=== PATIENT | male | born 1945 | race Caucasian/White ===

== ENCOUNTER 2020-04-19 05:30 | Day surgery (SDC) | payer OTHER, SELFPAY ==
[~2020-04-19] VITALS: Ht 182.9 cm; Wt 93.0 kg
[2020-04-19] MEDS ORDERED: METF1000 PO (06:43)
[2020-04-19] MEDS ORDERED: TAMS-11 PO (06:43)
[2020-04-19] MEDS ORDERED: DUTA0.5C PO (06:43)
[2020-04-19] MEDS ORDERED: PRO40 PO (06:43)
[2020-04-19] MEDS ORDERED: ASPI-1153 PO (06:43)
[2020-04-19] MEDS ORDERED: GABA-531 PO (06:43)
[2020-04-19] MEDS ORDERED: LIP10 PO (06:43)
[2020-04-19] MEDS ORDERED: SITA100T11 PO (06:43)
[2020-04-19] MEDS ORDERED: METH10TA80 PO (06:43)
[2020-04-19] MEDS ORDERED: LISI-209 PO (06:43)
[2020-04-19] MEDS ORDERED: ceFAZolin SODIUM 1 GM in D5W 100 ML IV ONE (07:15)
[2020-04-19] MEDS ORDERED: CEFAZOLIN 1 GM IVPB PREMIX 50 ML IV ONE (07:15)
[2020-04-19] MEDS ORDERED: THROMBIN (BOVINE) 5000 UNITS/ VIAL TP ONE (07:38)
[2020-04-19] MEDS ORDERED: ONDANSETRON HCL 4 MG/2 ML VIAL IVP PRN ×2 (08:45→12:45)
[2020-04-19] MEDS ORDERED: PROPOFOL 200MG/ 20ML VIAL (DIPRIVAN) IV ONE (13:00)
[2020-04-19] MEDS ORDERED: SEVOFLURANE 15 MIN GAS INH ONE (13:00)
[2020-04-19] MEDS ORDERED: ONDANSETRON HCL 4 MG/2 ML VIAL ONE (13:00)
[2020-04-19] MEDS ORDERED: LIDOCAINE/EPI 1% 1:100000 20 ML VIAL INJ ONE (13:00)
[2020-04-19] MEDS ORDERED: CEFAZOLIN 2 GM IVPB PREMIX 50 ML IV ONE (13:00)
[2020-04-19] MEDS ORDERED: LIDOCAINE 1% 10 MG/ML, 20 ML MDV ONE (13:00)
[2020-04-19] MEDS ORDERED: fentaNYL CITRATE/PF 100 MCG/2 ML AMP ONE (13:00)
[2020-04-19] MEDS ORDERED: DEXAMETHASONE SOD PHOSPHATE 4 MG/ML VIAL ONE (13:00)
[2020-04-19] MEDS ORDERED: ROCURONIUM BROMIDE 10 MG/ML (ZEMURON) ONE (13:00)
[2020-04-19] MEDS ORDERED: NS IRRIG SOLN 1000 ML IR ONE (13:00)
[2020-04-19] MEDS ORDERED: SUCCINYLCHOLINE CHLORIDE 20 MG/ML(QUELICIN) ONE (13:00)
[2020-04-19] MEDS ORDERED: LR 1,000 ML IV.SOLN IV ONE (13:00)
[2020-04-19] MEDS: HYDROmorphone 1 MG INJ. 1 MG/ML AMPUL IVP PRN ×2 (13:12→13:33)
[2020-04-19] MEDS ORDERED: HYDROmorphone 1 MG INJ. 1 MG/ML AMPUL ONE (13:28)
[2020-04-19] MEDS ORDERED: NORMAL SALINE 5 ML DISP.SYRIN IVF SCH (14:00)
--- NOTE | 2020-04-19 14:40 | NUR ---
Admit Note from PACU received report from Alem ZEPEDA. Patient is a/ox4, states mild but tolerable pain at this time. Dressing around the head (cling wrap) with gauze to the surgical site on the right neck, patient is s/p right parotidectomy, dressing is clean, dry and intact, x1 MARQUITA drain from the right side of the neck as well, serous drainage noted, 20ml was emptied by PACU nurse, IV line is patent and infusing well, no s/s of infiltration, patient was educated digital production operator light system and plan of care, he verbalized understanding, bed in lowest position, three side rails up, bed alarm on, fall and aspiration precautions in place, SCD's in place, monitoring on telemetry and post op vital signs.
[2020-04-19 14:45] VITALS: BP_SYST 131
--- NOTE | 2020-04-19 15:30 | NUR ---
INITIAL NOTES: RECEIVED REPORT FROM MARIANNA.S/P RIGHT PAROTIDECTOMY. RIGHT NECK DRESSING CLEAN AND DRY,WITH MARQUITA DRAINING TO REDDISH COLOR.PATIENT SEEN IN THE ROOM.AWAKE,ALERT AND ORIENTED X4.LEFT HAND IV FLUIDS ON GOING AND AFTER IVF SALINE LOCK.POST OP VITALS SIGNS CHECKED AND RECORDED.CALL LIGHT WITH IN REACH. BED LOCKED AT LOWEST POSITION. NO DISTRESS THIS TIME DENIES ANY PAIN.
[2020-04-19] MEDS ORDERED: DEXAMETHASONE SOD PHOSPHATE 4 MG/ML VIAL IVP SCH (16:00)
--- NOTE | 2020-04-19 16:20 | NUR ---
Rn Rounds: Patient watching tv. Patient denies any pain.
[2020-04-19 17:12] VITALS: BP_SYST 126
[2020-04-19] MEDS: NORMAL SALINE 5 ML DISP.SYRIN IVF SCH ×2 (17:24→22:04)
[2020-04-19] MEDS: metFORMIN HCL 500 MG TABLET PO SCH (17:25)
--- NOTE | 2020-04-19 17:30 | NUR ---
DINNER: CALLED DIETARY 3X AND LEFT MESSAGE REGARDING PATIENT'S DIET. DIRECTOR MANUFACTURING ENGINEERING ANIYA SPOKE WITH PAGE FROM DIETARY THAT SHE WILL SEND THE DINNER TRAY.
--- NOTE | 2020-04-19 19:00 | NUR ---
MD CARRILLO: SPOKE WITH DR ALLISON AND INFORMED HIM MARQUITA BULB WAS BROKEN,AND HE ORDERED TO TAKE PICTURES ON MARQUITA BULB AND SEND IT THRU HIS PHONE AND P#[phone]. ENDORSED TO NIGHT NURSE SARA.PATIENT IN STABLE CONDITION. Addendum: 04/19/20 at 1949 by Desi Hawkins RN ADDED NOTES: PATIENT ACCIDENTAL LAYING ON THE MARQUITA BULB AND WAS BROKEN.
[2020-04-19 19:50] VITALS: BP_SYST 149
--- NOTE | 2020-04-19 19:50 | NUR ---
INITIAL NOTE AT INITIAL ASSESSMENT, PATIENT IS RESTING IN BED, STABLE, NO SIGNS OF RESPIRATORY DISTRESS. PLAN OF CARE FOR THE EVENING IS COMMUNICATED WITH THE PATIENT. PATIENT DEMONSTRATES CORRECT USAGE OF CALL LIGHT USAGE AT THIS TIME. FALL, SAFETY, RESPIRATORY, AND ASPIRATION PRECAUTIONS WILL BE TAKEN THROUGHOUT THE SHIFT. BED IS LOCKED, ALARMED, AND AT THE LOWEST LEVEL.
[2020-04-19] MEDS: METHIMAZOLE 5 MG TABLET PO SCH (20:26)
[2020-04-19] MEDS: HYDROcodone/ACETAMIN 5-325 MG TAB (NORCO/ VICODIN) PO PRN (20:28)
--- NOTE | 2020-04-19 21:50 | NUR ---
COMMUNICATION WITH DR. ESTEFANY ALLISON HAS PAGED BACK AT THIS TIME, IT WAS COMMUNICATED THAT THE PATIENT'S MARQUITA DRAIN HAS BEEN PULLED, EXTERNAL TUBE LENGTH CURRENTLY MEASURING AT 51.5 CM, NO ACTIVE BLEED NOTED. DR. ALLISON HAS VERBALIZED THAT HE WILL COME IN THE MORNING TO ADDRESS THE TUBING. TUBING IS REINFORCED, AND SECURED. PATIENT VERBALIZES TOLERABLE PAIN, AT THIS TIME IS HE RESTING IN BED, STABLE, NO SIGNS OF RESPIRATORY DISTRESS. CALL LIGHT IS WITHIN REACH. BED IS LOCKED, ALARMED, AND AT THE LOWEST LEVEL.
[2020-04-19] MEDS: INSULIN REGULAR, HUMAN 100 UNITS/ML, 10 ML VIAL (humuLIN R) SUBCUT PRN (23:42)
--- NOTE | 2020-04-19 23:50 | NUR ---
INCENTIVE SPIROMETER TEACHING PATIENT DEMONSTRATED CORRECT USAGE OF INCENTIVE SPIROMETER AT THIS TIME. HE IS CURRENTLY AVERAGING 2,000 ML WITH NO PAIN NOTED DURING DEMONSTRATION. HE VERBALIZES KNOWING TO PRACTICE "10 TIMES AN HOUR". HIS OXYGEN SATURATION IS 94% ON ROOM AIR. WILL CONTINUE TO ENCOURAGE THROUGHOUT THE SHIFT.
[2020-04-20] MEDS: HYDROcodone/ACETAMIN 5-325 MG TAB (NORCO/ VICODIN) PO PRN ×2 (00:42→05:15)
[2020-04-20 01:05] VITALS: BP_SYST 120
--- NOTE | 2020-04-20 01:50 | NUR ---
NOTE PATIENT IS RESTING IN BED, STABLE, NO SIGNS OF RESPIRATORY DISTRESS. CALL LIGHT IS WITHIN REACH. BED IS LOCKED, ALARMED, AND AT THE LOWEST LEVEL.
--- NOTE | 2020-04-20 03:50 | NUR ---
NOTE PATIENT IS STABLE, NO SIGNS OF RESPIRATORY DISTRESS. CALL LIGHT IS WITHIN REACH. BED IS LOCKED, ALARMED, AND AT THE LOWEST LEVEL.
--- NOTE | 2020-04-20 05:10 | NUR ---
NOTE PATIENT IS SLEEPING, STABLE, NO SIGNS OF RESPIRATORY DISTRESS. CALL LIGHT IS WITHIN REACH. BED IS LOCKED, ALARMED, AND AT THE LOWEST LEVEL.
[2020-04-20] MEDS: NORMAL SALINE 5 ML DISP.SYRIN IVF SCH (05:17)
[2020-04-20] MEDS: INSULIN REGULAR, HUMAN 100 UNITS/ML, 10 ML VIAL (humuLIN R) SUBCUT PRN (05:17)
--- NOTE | 2020-04-20 06:40 | NUR ---
COMMUNICATION W/ DR. ESTEFANY ALLISON HAS BEEN MADE AWARE THAT THE PATIENT HAS MANAGED TO PULL OUT HIS MARQUITA DRAIN COMPLETELY AT THIS TIME. NO ACTIVE BLEED NOTED. DRESSING OVER INCISION SITE IS REINFORCED. AWAITING MD ORDERS. AT THIS TIME, PATIENT VERBALIZES NO PAIN. HE IS STABLE, NO SIGNS OF RESPIRATORY DISTRESS. CALL LIGHT IS WITHIN REACH. BED IS LOCKED, ALARMED, AND AT THE LOWEST LEVEL.
--- NOTE | 2020-04-20 06:50 | NUR ---
CLOSING NOTE PATIENT VERBALIZED THAT NORCO WAS EFFECTIVE FOR HIS PAIN THROUGHOUT THE NIGHT. AT THIS TIME, HE IS STABLE, NO SIGNS OF RESPIRATORY DISTRESS. BED IS LOCKED, ALARMED, AND AT THE LOWEST LEVEL. FALL, SAFETY, RESPIRATORY, AND ASPIRATION PRECAUTIONS HAVE BEEN TAKEN THROUGHOUT THE SHIFT. WILL CONTINUE TO MONITOR UNTIL SBAR REPORT IS GIVEN AT BEDSIDE TO AM NURSE.
--- NOTE | 2020-04-20 07:15 | NUR ---
opening note received bedside sbar from night rn, patient in bed, respirations even non labored, bed in low and locked position, call light within reach
--- NOTE | 2020-04-20 07:58 | NUR ---
Nutrition Update Aron scale 17 noted. Pt admitted for other diseases of salivary glands. Diet: Mechanical Soft BMI: n/a kg/m2 RD to follow per nutrition care standards.
[2020-04-20 08:00] VITALS: BP_SYST 141
--- NOTE | 2020-04-20 08:30 | NUR ---
nurse note provided medications, patient in bed, respirations, even, non labored, bed in low and locked position, call light within reach
[2020-04-20] MEDS: metFORMIN HCL 500 MG TABLET PO SCH (08:38)
[2020-04-20] MEDS: METHIMAZOLE 5 MG TABLET PO SCH (08:40)
[2020-04-20] MEDS ORDERED: PANTOPRAZOLE SODIUM 40 MG TAB PO SCH (09:00)
[2020-04-20] MEDS ORDERED: LISINOPRIL 5 MG TABLET PO SCH (09:00)
[2020-04-20] MEDS ORDERED: TAMSULOSIN HCL 0.4 MG CAP PO SCH (09:00)
[2020-04-20 10:06] VITALS: BP_SYST 141
--- NOTE | 2020-04-20 10:50 | NUR ---
D/C Patient Patient given medication reconciliation form and D/C instructions. Exit Care provided. Patient verbalized understanding. MD discussed with patient the results and treatment provided. Ambulatory with steady gait for discharge to home. Patient in stable condition, ID band removed. IV catheter removed, intact and dressing applied, no active bleeding. Patient educated on pain management. All belongings sent with patient. Patient wheeled out via wheelchair to son's awaiting car.
== END 2020-04-20 10:45 | disposition home or self-care (01) ==
LOC: SMU 05:30 → SDS 05:30 → STU 14:53 → SDS 04-20 10:45
PROVIDERS: ATTEND Otolaryngology Plastic Surgery within the Head & Neck
DX: K11.8 Other diseases of salivary glands (principal); I10 Essential (primary) hypertension; E78.00 Pure hypercholesterolemia, unspecified; E11.9 Type 2 diabetes mellitus without complications; K21.9 Gastro-esophageal reflux disease without esophagitis; E03.9 Hypothyroidism, unspecified; M19.90 Unspecified osteoarthritis, unspecified site; I25.10 Atherosclerotic heart disease of native coronary artery without angina pectoris; Z79.899 Other long term (current) drug therapy; Z11.59 Encounter for screening for other viral diseases
CPT/HCPCS: 42415; 82962; 87070; 87075; 87081; 88307; C1782; J0330; J0690 ×2; J1100; J1170; J2001; J2405; J2704; J3010; J7060; J7120; U0003